=== PATIENT | male | born 1955 | race Caucasian/White ===

== ENCOUNTER 2016-06-06 09:48 | Emergency (ER) | payer OTHER ==
[~2016-06-06] VITALS: Ht 160 cm; Wt 100.0 kg
[~2016-06-06 09:48] MED LIST: NO MEDS
[2016-06-06 09:55] VITALS: Ht 160 cm; Wt 100.0 kg
--- NOTE | 2016-06-06 11:40 | RADRPT ---
PROCEDURE: XR Chest. CLINICAL INDICATION: Cough TECHNIQUE: A single portable view of the chest was obtained. COMPARISON: None FINDINGS: The cardiomediastinal silhouette is within normal limits. The lungs and pleural spaces are clear. The soft tissues and osseous structures are unremarkable. IMPRESSION: No acute cardiopulmonary disease. RPTAT: HPNM Physician Eda Date Time Electronically viewed and signed by Jack Freed Physician on 06/06/2016 11:39 /
--- NOTE | 2016-06-06 11:49 | ERD ---
ER Documentation Chief Complaint Date/Time DATE: 06/06/16 TIME: 11:46 Chief Complaint COUGH X 1 WEEK HPI This is a 61-year-old male who presents to emergency department today complaining of cough for the past week. Patient states initially the first couple of days he had a lot of phlegm but that has resolved. States he has tried inqj-luy-ueevwge medications with no improvement in symptoms. States he tried Robitussin, Tylenol and Advil. Denies any cigarette smoker sinus congestion. Denies any calf pain or recent travel. States his cough is sometimes worse at night. ROS All systems reviewed and are negative except as per history of present illness. Medications Home Meds Active Scripts Cetirizine Hcl* (Zyrtec*) 10 Mg Capsule, 10 MG PO DAILY, #14 TAB.CHEW Prov:ABRAHAM SOLANO PA-C 06/06/16 Dextromethorphan Hb-Promethazine Hcl (Promethazine DM Syrup) 473 Ml Syrup, 5 ML PO Q6H, #4 OZ Prov:ABRAHAM SOLANO PA-C 06/06/16 Azithromycin* (Zithromax*) 250 Mg Tablet, 250 MG PO .ZPACK DIRECTED, #6 TAB TAKE 500 MG (2 TABS) THE FIRST DAY THEN 250 MG (1 TAB) DAYS 2-5 Prov:ABRAHAM SOLANO PA-C 06/06/16 Reported Medications [No Meds] No Conflict Check 01/02/16 Allergies Allergies: Coded Allergies: No Known Allergy (Unverified , 02/24/12) PMhx/Soc History of Surgery: Yes (CIRCUMCISION) Anesthesia Reaction: No Hx Neurological Disorder: No Hx Respiratory Disorders: No Hx Cardiac Disorders: No Hx Psychiatric Problems: No Hx Miscellaneous Medical Probl: No Hx Alcohol Use: Yes (OCCASIONAL) Hx Substance Use: No Hx Tobacco Use: Yes (20 YRS AGO) Physical Exam Vitals Vital Signs Date Time Temp Pulse Resp B/P Pulse Ox O2 Delivery O2 Flow Rate FiO2 06/06/16 09:55 97.6 74 18 167/75 97 Physical Exam Const: Talkative, pleasant, no acute distress Head: Atraumatic Eyes: Normal Conjunctiva ENT: Ears TMs normal. Nose no drainage. Throat no erythema no exudate Neck: Full range of motion..~ No meningismus. Resp: Clear to auscultation bilaterally. No absent breath sounds. No wheezing. Cardio: Regular rate and rhythm, no murmurs Abd: Soft, non tender, non distended. Normal bowel sounds Skin: No petechiae or rashes Back: No midline or flank tenderness Ext: No cyanosis, or edema. No calf pain bilaterally Neur: Awake and alert Psych: Normal Mood and Affect Results 24 hrs Patient: SHAHRIAR PATEL : 1955 Age: 61 Sex: M MR #: [id number] DOS: 06/06/16 0000 Ordering MD: ABRAHAM SOLANO PA-C Location: [facility] Room/Bed: PROCEDURE: XR Chest. CLINICAL INDICATION: Cough TECHNIQUE: A single portable view of the chest was obtained. COMPARISON: None FINDINGS: The cardiomediastinal silhouette is within normal limits. The lungs and pleural spaces are clear. The soft tissues and osseous structures are unremarkable. IMPRESSION: No acute cardiopulmonary disease. RPTAT: HPNM Physician Eda Date Time Electronically viewed and signed by Physician Eda on 06/06/2016 11 :39 / CC: ABRAHAM SOLANO PA-C Procedures/MDM This is a 7-year-old male who presents the emergency department today complaining of some cough for the past week. Given the patient's age and no improvement in symptoms with nytw-yhl-wiwchyq medications and did obtain a chest x-ray. Chest x-ray is negative. Low suspicion for PE, pneumonia, abscess, pneumothorax , pleural effusion, mass, mass, TB. Patient is afebrile and otherwise well- appearing here in the emergency department. He is afebrile and his oxygen saturation is 97%. I do not feel the patient requires a breathing treatment here in the emergency department. Patient has no calf pain and no recent or prolonged travel and again I have low suspicion for PE. Low suspicion for influenza. I will give the patient a prescription for azithromycin to treat possible bronchitis however his symptoms may also be viral in nature. Also give the patient a prescription for Zyrtec and promethazine DM to help with his cough symptoms. At this time the patient is stable for discharge and outpatient management. Patient should follow up with their PCP in the next 1-2 days. They may return to the emergency department sooner for any persistent or worsening of symptoms. Patient understood and agreed with the plan. Departure Diagnosis: Primary Impression: Cough Condition: Fair ABRAHAM SOLANO PA-C Jun 06, 2016 11:49
[2016-06-06] MEDS ORDERED: AZIT250T94 PO (11:50)
[2016-06-06] MEDS ORDERED: CETI10CA PO (11:51)
[2016-06-06] MEDS ORDERED: D-ME473S18 PO (11:51)
== END 2016-06-06 12:00 | disposition home or self-care (01) ==
LOC: FTE 09:48
DX: R05 Cough (principal); Z72.0 Tobacco use
CPT/HCPCS: 71010; Z7502